=== PATIENT | male | born 1955 | race Caucasian/White ===

== ENCOUNTER 2016-10-23 10:21 | Outpatient (CLI) | payer OTHER ==
--- NOTE | 2016-10-23 10:47 | DIAGNOSTIC IMAGING REPORT ---
PROCEDURE: XR THORACIC SPINE 3 VIEWS INDICATION: PAIN IN THORACIC SPINE TECHNIQUE: Three views. COMPARISON: None. FINDINGS: Osteoarthritis and spondylosis at T8-9. No evidence of an acute process or fracture. IMPRESSION: 1. 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
== END 2016-10-23 23:00 ==
LOC: XR SRH 10:21
DX: M47.814 Spondylosis without myelopathy or radiculopathy, thoracic region (principal)